=== PATIENT | female | born 1945 | race Caucasian/White ===

== ENCOUNTER 2023-12-16 17:55 | Emergency (ER) | payer MEDICARE, BC, SELFPAY ==
[2023-12-16] VITALS (7 sets, daily range): BP systolic 129–146; BP diastolic 57–64; BMI 26.9
[2023-12-16 18:04] LABS: % Basophils 0.7 % (0-2); % Eosinophils 1.8 % (0-6); % Immature Granulocytes 0.4 % (0-0.5); % Monocytes 9.1 % (1.7-9.3); Absolute Basophils 0.1 10^3/uL (0-0.2); Absolute Eosinophils 0.2 10^3/uL (0-0.7); Absolute Lymphocytes 1.3 10^3/uL (1.2-3.4); Absolute Monocytes 0.8 10^3/uL (0.1-0.6); Absolute Neutrophils 6.2 10^3/uL (1.4-6.5); Hemoglobin 11.5 g/dL (12.0-16.0); Mean Corp Hgb Conc. 32.9 g/dL (33.0-37.0); Mean Corpuscular Hgb 28.8 pg (27.0-31.0); Mean Corpuscular Volume 87.7 fL (81.0-99.0); Mean Platelet Volume 10.9 fL (7.4-10.4); Nucleated Red Blood Cells % 0 %; Platelet Count 331 10^3/uL (130-400); Red Blood Cell Count 3.99 10^6/uL (4.20-5.40); Red Cell Dist. Width 13.8 % (11.5-14.5); White Blood Cell Count 8.4 10^3/uL (4.8-10.8)
--- NOTE | 2023-12-16 18:04 | ED.GENMED ---
History of Present Illness
General
Chief Complaint: Chest Pain
Time Seen by Provider: 12/16/23 18:03
Travel History
Have you had any contact with someone who has COVID-19?: No
Do you have any symptoms of coronavirus? Fever > 100 degrees, chills, cough, shortness of breath, sore throat, loss of taste or smell, muscle aches, or headache?: No
History of Present Illness
History of Present Illness:
HPI: Patient presents with chest pain. She came in by ambulance. EMS did give nitro and aspirin. She has had a Watchman. She states that the nitroglycerin did not really help at all. Her pain is localized lateral to the left breast. She never
had any diffuse chest pain. There is no radiation. There was some pleuritic component but there is no shortness of breath.
EXAM:
GENERAL: Well appearing in no distress
HEENT: Moist oral mucosa
CARDIOVASCULAR: 4 out of 6 systolic murmur heard diffusely, normal heart rate and rhythm, moderate to severe lateral left chest wall tenderness
PULMONARY: No respiratory distress, breath sounds are clear and equal
ABDOMEN: Soft with no peritoneal signs, no tenderness
NEUROLOGIC: Excellent strength all extremities, no coordination deficits
PSYCHIATRIC: Appropriate mental status, normal insight and judgement
EXTREMITIES: Nontender, no edema, moves all extremities equally
SKIN: No rash, no lesions
ED COURSE:
6:30 PM: I initially evaluated patient
NUMBER AND COMPLEXITY OF PROBLEMS ADDRESSED AT THE ENCOUNTER
� Chronic conditions affecting care: A-fib status post Watchman, high blood pressure, has maker, has history of GI bleed
� Acute Exacerbation and/or Progression of Chronic Illness: This is an acute problem
� Differential Diagnosis includes: Chest wall pain, pneumothorax, pneumonia, GERD, ACS unlikely
AMOUNT AND/OR COMPLEXITY OF DATA TO BE REVIEWED AND ANALYZED
� I performed an independent evaluation of and my interpretation is:
EKG: V paced, rate of 66, MD [address]:
X-rays: Chest x-ray shows no acute abnormality
Laboratory Studies: White count is normal, hemoglobin is 11.5, 2 troponins have been negative and second troponin was drawn more than 3 hours after symptom onset
Other:
� Review of other/old records: Hemoglobin from 2 months ago was 11.5
� Clinical information was obtained by an independent historian: I reviewed notes from her facility
� Prescriptions/Medications Considered but not given:
� Further testing considered but not performed:
RISK OF COMPLICATIONS AND/OR MORBIDITY OR MORTALITY OF PATIENT MANAGEMENT
� Social determinants of health affecting care: Currently staying at the [facility]
� Discussion with other providers:
� Escalation of care including admission/observation vs risk of discharge considered: The patient has reproducible left-sided chest discomfort. It is clearly reproducible on examination. However given advanced age, cardiac
workup pursued. Tylenol was as she does have reproduced chest wall pain. Chest x-ray unremarkable. The patient appears comfortable at time of discharge. The patient states Tylenol did help and her symptoms have improved.
Phy Exam
Physical Exam
Physical Exam:
See HPI
Scores
Heart Score for Chest Pain Patients
STEMI patient?: Not applicable
Course
Orders/Labs/Results
Orders:
Orders
12/16/23 17:57
Electrocardiogram (*1) Urgent
Reason for Study: Chest Pain
Cardiac Monitoring- Treatment ONCE
EKG- Treatment ONCE
12/16/23 17:59
Complete Blood Count/With Diff Urgent
Prothrombin Time Urgent
12/16/23 18:38
Comprehensive Metabolic Panel Urgent
Troponin I Urgent
12/16/23 19:36
Acetaminophen [Tylenol] 1,000 mg PO NOW STA
12/16/23 20:17
CR Chest - 2 Views Urgent
Comment:
Reason For Exam: L CP
12/16/23 20:47
Troponin I Urgent
Abnormal Lab Results
12/16/23 12/16/23
17:59 18:38
RBC 3.99 L 10^6/uL
(4.20-5.40)
Hgb 11.5 L g/dL
(12.0-16.0)
Hct 35.0 L %
(37.0-47.0)
MCHC 32.9 L g/dL
(33.0-37.0)
MPV 10.9 H fL
(7.4-10.4)
Absolute Monos (auto) 0.8 H 10^3/uL
(0.1-0.6)
Lymphocytes % 15.0 L %
(20.5-51.1)
Sodium 132 L mmol/L
(135-145)
BUN 48 H mg/dl
(7-17)
Glucose 111 H mg/dl
(70-99)
Alkaline Phosphatase 178 H U/L
(38-126)
Albumin 3.4 L g/dl
(3.5-5.0)
12/16/23 17:59
12/16/23 18:38
Vital Signs
Initial and Last Documented VS:
Initial Vital Signs
Temp Pulse Resp BP Pulse Ox
98.6 F 64 24 137/64 99
12/16/23 17:57 12/16/23 17:57 12/16/23 17:57 12/16/23 17:57 12/16/23 17:57
Last Documented Vital Signs
Temp Pulse Resp BP Pulse Ox
98.6 F 61 15 129/57 96
12/16/23 17:57 12/16/23 20:15 12/16/23 20:15 12/16/23 20:00 12/16/23 20:15
*Critical Care Note
Total Time (30-74mins, 75-104mins- exclusive of procedures): Not Applicable
ED Attending Note
-
Portions of this chart may have been created with voice recognition software.� Occasional wrong word or��sound alike� substitutions may have occurred due to the inherent limitations of voice recognition software.
Discharge Plan
Departure
Patient Disposition: Home (Routine Discharge)
Date of Disposition: 12/16/23
Time of Disposition: 21:24
Patient with high blood pressure during this ER visit?: Yes
Discharge Problem:
Chest pain
Instructions: Chest Pain PCP Follow Up
Referrals:
UNKNOWN - PT NOT,INTERVIEWE [Family Provider] -
Activity Restrictions/Additional Instructions:
The chest x-ray shows no abnormality, 2 cardiac blood test called troponin showed no sign of heart attack. EKG shows that your pacemaker is working. Other basic blood work is unremarkable. Return here if worse. Take Tylenol for pain.
Interventions
Interventions:
*Risk Screen - Suicide Last Done: 12/16/23 17:57
*Neglect/Abuse Screening Last Done: 12/16/23 17:57
ED- Fall Risk Assessment Last Done: 12/16/23 18:09
*ED COVID-19 Vaccine History Last Done: 12/16/23 17:57
ED- Cardiac Assessment Last Done: 12/16/23 18:09
[2023-12-16 18:16] LABS: INR 1.12; PT 14.2 Sec (11.4-14.6)
[2023-12-16 19:05] LABS: ALT (SGPT) < 10 U/L (0-35); AST (SGOT) 24 U/L (14-36); Albumin 3.4 g/dl (3.5-5.0); Alkaline Phosphatase 178 U/L (38-126); Blood Urea Nitrogen 48 mg/dl (7-17); Calcium 8.7 mg/dl (8.4-10.2); Carbon Dioxide 24 mmol/L (22-30); Chloride 101 mmol/L (98-107); Estimated Creatinine Clearance 42 ml/min; Glucose 111 mg/dl (70-99); Potassium 4.4 mmol/L (3.5-5.1); Sodium 132 mmol/L (135-145); Total Bilirubin 0.5 mg/dl (0.2-1.3); Total Protein 6.4 g/dl (6.3-8.2); eGFR 57.31
[2023-12-16 19:17] LABS: Troponin I < 0.012 ng/ml
[2023-12-16] MEDS: TYLENOL 1000 MG PO (20:40)
[2023-12-16 21:17] LABS: Troponin I < 0.012 ng/ml
[2023-12-17] VITALS: BP 139/61
== END 2023-12-17 00:20 | disposition home or self-care (01) ==
LOC: EMR 17:55
PROVIDERS: EMERGENCY PHYSICIAN Emergency Medicine
DX: R07.89 Other chest pain (principal); I48.91 Unspecified atrial fibrillation; I51.7 Cardiomegaly
CPT/HCPCS: 99283; 71046; 80053; 84484; 85025; 85610; 93005

== ENCOUNTER → 2024-02-06 10:20 | Outpatient (REF) | payer MEDICARE, SELFPAY ==
[2024-02-06 10:56] LABS: % Basophils 0.6 % (0-2); % Eosinophils 1.7 % (0-6); % Immature Granulocytes 0.3 % (0-0.5); % Lymphocytes 12.8 % (20.5-51.1); % Monocytes 6.7 % (1.7-9.3); % Neutrophils 77.9 % (42.2-75.2); Absolute Basophils 0.1 10^3/uL (0-0.2); Absolute Eosinophils 0.2 10^3/uL (0-0.7); Absolute Lymphocytes 1.3 10^3/uL (1.2-3.4); Absolute Monocytes 0.7 10^3/uL (0.1-0.6); Absolute Neutrophils 7.7 10^3/uL (1.4-6.5); Hematocrit 31.4 % (37.0-47.0); Mean Corp Hgb Conc. 31.8 g/dL (33.0-37.0); Nucleated Red Blood Cells % 0 %; Platelet Count 249 10^3/uL (130-400); Red Blood Cell Count 3.57 10^6/uL (4.20-5.40); Red Cell Dist. Width 15.8 % (11.5-14.5); White Blood Cell Count 9.9 10^3/uL (4.8-10.8)
[2024-02-06 10:56] LABS: Urine Albumin Negative (Neg - Trace); Urine Bilirubin Negative (Negative); Urine Character Clear (Clear); Urine Color Yellow; Urine Glucose Negative (Negative); Urine Ketone Negative (Negative); Urine Leukocyte Negative (Negative); Urine Nitrite Negative (Negative); Urine Occult Blood Negative (Negative); Urine Urobilinogen Negative (Neg - 1+)
[2024-02-06 11:07] LABS: APTT 30.2 Sec (23.4-35.0); INR 1.05; PT 13.7 Sec (11.4-14.6)
[2024-02-06 11:32] LABS: Blood Urea Nitrogen 39 mg/dl (7-17); Calcium 9.3 mg/dl (8.4-10.2); Carbon Dioxide 25 mmol/L (22-30); Chloride 105 mmol/L (98-107); Glucose 86 mg/dl (70-99); Sodium 136 mmol/L (135-145); eGFR > 60.00
[2024-02-06 12:37] LABS: Glycohemoglobin (HgbA1c) 5.8 % (4.0-5.6)
== END ==
LOC: OLABPATH 10:20
PROVIDERS: ATTENDING PHYSICIAN Internal Medicine
DX: Z79.01 Long term (current) use of anticoagulants (principal); N30.00 Acute cystitis without hematuria; Z13.1 Encounter for screening for diabetes mellitus; Z01.812 Encounter for preprocedural laboratory examination; Z01.818 Encounter for other preprocedural examination; Z79.899 Other long term (current) drug therapy
CPT/HCPCS: 36415; 80048; 81003; 83036; 85025; 85610; 85730; 87077; 87086; 87186

== ENCOUNTER → 2024-02-12 11:00 | Outpatient (REF) | payer MEDICARE, SELFPAY | LOC: OLABPATH 11:00 | PROVIDERS: ATTENDING PHYSICIAN Internal Medicine | DX: N30.00 Acute cystitis without hematuria (principal); Z13.1 Encounter for screening for diabetes mellitus; Z01.812 Encounter for preprocedural laboratory examination; Z01.818 Encounter for other preprocedural examination | CPT/HCPCS: 87070 ==

== ENCOUNTER → 2024-10-14 15:15 | Outpatient (REF) | payer MEDICARE, SELFPAY ==
[2024-10-15 11:03] LABS: Urine Albumin Trace (Neg - Trace); Urine Bilirubin Negative (Negative); Urine Character Clear (Clear); Urine Color Yellow; Urine Glucose Negative (Negative); Urine Ketone Negative (Negative); Urine Leukocyte Negative (Negative); Urine Nitrite Negative (Negative); Urine Occult Blood Negative (Negative); Urine Specific Gravity 1.015 (<1.030); Urine Urobilinogen Negative (Neg - 1+)
== END ==
LOC: OLABPATH 15:15
PROVIDERS: ATTENDING PHYSICIAN Internal Medicine
DX: N39.0 Urinary tract infection, site not specified (principal)
CPT/HCPCS: 81003

== ENCOUNTER → 2024-11-17 09:59 | Outpatient (REF) | payer MEDICARE, SELFPAY ==
[2024-11-17 11:21] LABS: Glycohemoglobin (HgbA1c) 5.7 % (4.0-5.6)
== END ==
LOC: OLABPATH 09:59
PROVIDERS: ATTENDING PHYSICIAN Internal Medicine
DX: E11.65 Type 2 diabetes mellitus with hyperglycemia (principal)
CPT/HCPCS: 36415; 83036

== ENCOUNTER → 2024-12-31 11:16 | Outpatient (REF) | payer MEDICARE, SELFPAY ==
[2024-12-31 12:48] LABS: % Basophils 0.5 % (0-2); % Eosinophils 1.9 % (0-6); % Immature Granulocytes 0.8 % (0-0.5); % Lymphocytes 12.8 % (20.5-51.1); % Monocytes 8.3 % (1.7-9.3); % Neutrophils 75.7 % (42.2-75.2); Absolute Basophils 0.1 10^3/uL (0-0.2); Absolute Eosinophils 0.2 10^3/uL (0-0.7); Absolute Immature Granulocytes 0.1 10^3/uL (0-0.05); Absolute Lymphocytes 1.3 10^3/uL (1.2-3.4); Absolute Monocytes 0.9 10^3/uL (0.1-0.6); Absolute Neutrophils 7.8 10^3/uL (1.4-6.5); Hematocrit 35.8 % (37.0-47.0); Hemoglobin 11.7 g/dL (12.0-16.0); Mean Corp Hgb Conc. 32.7 g/dL (33.0-37.0); Mean Corpuscular Hgb 29.5 pg (27.0-31.0); Mean Corpuscular Volume 90.2 fL (81.0-99.0); Mean Platelet Volume 11.7 fL (7.4-10.4); Nucleated Red Blood Cells % 0 %; Platelet Count 259 10^3/uL (130-400); Red Blood Cell Count 3.97 10^6/uL (4.20-5.40); White Blood Cell Count 10.3 10^3/uL (4.8-10.8)
[2024-12-31 12:54] LABS: ALT (SGPT) 13 U/L (0-35); AST (SGOT) 23 U/L (14-36); Albumin 4.6 g/dl (3.5-5.0); Alkaline Phosphatase 117 U/L (38-126); Blood Urea Nitrogen 39 mg/dl (7-17); Calcium 9.6 mg/dl (8.4-10.2); Carbon Dioxide 23 mmol/L (22-30); Chloride 97 mmol/L (98-107); Glucose 104 mg/dl (70-99); Potassium 3.5 mmol/L (3.5-5.1); Sodium 135 mmol/L (135-145); Total Bilirubin 1.2 mg/dl (0.2-1.3); Total Protein 7.3 g/dl (6.3-8.2); eGFR 41.57
== END ==
LOC: OLABPATH 11:16
PROVIDERS: ATTENDING PHYSICIAN Internal Medicine
DX: R79.9 Abnormal finding of blood chemistry, unspecified (principal); Z13.220 Encounter for screening for lipoid disorders
CPT/HCPCS: 36415; 80053; 85025

== ENCOUNTER 2025-08-17 11:12 | Emergency (ER) | payer MEDICARE, BC, SELFPAY ==
[2025-08-17 11:15] VITALS: BP 160/62
[2025-08-17 11:16] VITALS: BP 160/62
[2025-08-17 11:37] LABS: Hematocrit 32.9 % (37.0-47.0); Hemoglobin 10.1 g/dL (12.0-16.0); Mean Corp Hgb Conc. 30.7 g/dL (33.0-37.0); Mean Corpuscular Volume 94.0 fL (81.0-99.0); Nucleated Red Blood Cells % 0 %; Platelet Count 214 10^3/uL (130-400); Red Cell Dist. Width 14.5 % (11.5-14.5)
[2025-08-17 11:55] LABS: ALT (SGPT) 14 U/L (0-35); AST (SGOT) 20 U/L (14-36); Albumin 3.8 g/dl (3.5-5.0); Alkaline Phosphatase 122 U/L (38-126); Blood Urea Nitrogen 34 mg/dl (7-17); Calcium 8.7 mg/dl (8.4-10.2); Carbon Dioxide 25 mmol/L (22-30); Chloride 106 mmol/L (98-107); Glucose 130 mg/dl (70-99); Potassium 4.1 mmol/L (3.5-5.1); Sodium 137 mmol/L (135-145); Total Protein 6.5 g/dl (6.3-8.2); eGFR 56.60
[2025-08-17 12:00] VITALS: BP 153/60
[2025-08-17 13:00] VITALS: BP 138/60
--- NOTE | 2025-08-17 13:37 | ED.GENMED ---
Addendum entered and electronically signed by Joaquin Jimenez PA-C 08/20/25 06:19:
On Bactrim, appropriate per C&S
Original Note:
History of Present Illness
<Abhi Porter, DO - Last Filed: 08/17/25 15:36>
General
Chief Complaint: Change in Mental Status
Time Seen by Provider: 08/17/25 11:54
History of Present Illness
History of Present Illness:
See MDM
Phy Exam
<Abhi Porter, DO - Last Filed: 08/17/25 15:36>
Physical Exam
Physical Exam:
See MDM
Course
<Abhi Porter, DO - Last Filed: 08/17/25 15:36>
Orders/Labs/Results
Orders:
Orders
08/17/25 11:24
Complete Blood Count/With Diff Urgent
Comprehensive Metabolic Panel Urgent
08/17/25 12:25
Urine Culture Urgent
JEAN CLAUDE Source: Urine
Specimen Description:
Obtained by: [facility]
Date Specimen was Collected: 08/17/25
Time Specimen was Collected: 12:23
08/17/25 13:36
Ketorolac [Toradol] 15 mg IV NOW STA
Sulfamethox./Trimethoprim Ds [Bactrim Ds 800 mg/160 mg] 1 tablet PO NOW STA
Abnormal Lab Results
08/17/25
11:24
RBC 3.50 L 10^6/uL
(4.20-5.40)
Hgb 10.1 L g/dL
(12.0-16.0)
Hct 32.9 L %
(37.0-47.0)
MCHC 30.7 L g/dL
(33.0-37.0)
MPV 10.5 H fL
(7.4-10.4)
Absolute Neuts (auto) 8.5 H 10^3/uL
(1.4-6.5)
Absolute Lymphs (auto) 0.6 L 10^3/uL
(1.2-3.4)
Absolute Monos (auto) 0.7 H 10^3/uL
(0.1-0.6)
Neutrophils % 83.9 H %
(42.2-75.2)
Lymphocytes % 6.0 L %
(20.5-51.1)
BUN 34 H mg/dl
(7-17)
Glucose 130 H mg/dl
(70-99)
08/17/25 11:24
08/17/25 11:24
Vital Signs
Initial and Last Documented VS:
Initial Vital Signs
BP
160/62
08/17/25 11:15
Last Documented Vital Signs
Temp Pulse Resp BP Pulse Ox
98.2 F 64 13 144/61 96
08/17/25 11:16 08/17/25 15:30 08/17/25 15:30 08/17/25 15:00 08/17/25 15:30
<Jonathan Aldana, DO - Last Filed: 08/17/25 16:50>
Orders/Labs/Results
Orders:
Orders
08/17/25 11:24
Complete Blood Count/With Diff Urgent
Comprehensive Metabolic Panel Urgent
08/17/25 12:25
Urine Culture Urgent
JEAN CLAUDE Source: Urine
Specimen Description:
Obtained by: [facility]
Date Specimen was Collected: 08/17/25
Time Specimen was Collected: 12:23
08/17/25 13:36
Ketorolac [Toradol] 15 mg IV NOW STA
Sulfamethox./Trimethoprim Ds [Bactrim Ds 800 mg/160 mg] 1 tablet PO NOW STA
Abnormal Lab Results
08/17/25
11:24
RBC 3.50 L 10^6/uL
(4.20-5.40)
Hgb 10.1 L g/dL
(12.0-16.0)
Hct 32.9 L %
(37.0-47.0)
MCHC 30.7 L g/dL
(33.0-37.0)
MPV 10.5 H fL
(7.4-10.4)
Absolute Neuts (auto) 8.5 H 10^3/uL
(1.4-6.5)
Absolute Lymphs (auto) 0.6 L 10^3/uL
(1.2-3.4)
Absolute Monos (auto) 0.7 H 10^3/uL
(0.1-0.6)
Neutrophils % 83.9 H %
(42.2-75.2)
Lymphocytes % 6.0 L %
(20.5-51.1)
BUN 34 H mg/dl
(7-17)
Glucose 130 H mg/dl
(70-99)
08/17/25 11:24
08/17/25 11:24
Vital Signs
Initial and Last Documented VS:
Initial Vital Signs
BP
160/62
08/17/25 11:15
Last Documented Vital Signs
Temp Pulse Resp BP Pulse Ox
98.2 F 64 13 144/61 96
08/17/25 11:16 08/17/25 15:30 08/17/25 15:30 08/17/25 15:00 08/17/25 15:30
<Abhi Porter, DO - Last Filed: 08/17/25 15:36>
MDM/Problems Addressed
Differential Diagnosis Includes:
Note:
CHIEF COMPLAINT(S)
Back pain and urinary tract infection.
HISTORY OF PRESENT ILLNESS
The patient is an 80-year-old female who reports experiencing back pain. The pain is described as bilateral, affecting both sides of her back. She also has a recent diagnosis of a urinary tract infection, identified on a Sunday, but reports not
having been started on antibiotics. The patient denies having fevers, stating 'everything is normal' in terms of her vital signs or temperature. She reports feeling 'awful' but mentions no exacerbation of her symptoms. The pain is being evaluated
for a possible kidney infection.
PAST MEDICAL AND SURGICAL HISTORY
The patient did not clearly state past medical or surgical history during this encounter. Known allergy to penicillin reported.
PHYSICAL EXAM
General: Alert, no acute distress.
Skin: Warm, dry. No rash noted to back
Head: Normocephalic, atraumatic
Neck: Appears supple, trachea midline.
Eyes, Ears, Nose, Mouth, and Throat: Moist mucous membranes
Cardiovascular: No signs of cyanosis. Regular rate and rhythm
Respiratory: Respirations are non-labored. Lungs clear
Abdomen: Non-distended. Soft and nontender
Musculoskeletal: No deformities
Neurological: No focal neurological deficit observed.
Psychiatric: Cooperative, appropriate mood and affect.
PLAN
Initiate basic blood work to evaluate for kidney infection or any other underlying issues. Consider administration of IV Toradol for immediate pain relief. Plan to evaluate urine for signs of infection and prepare for potential IV antibiotic
administration.
DIFFERENTIAL DIAGNOSIS
The Differential Diagnosis includes, in no particular order and is not limited to:
- Urinary tract infection
- Pyelonephritis (kidney infection)
- Musculoskeletal back pain
- Nephrolithiasis (kidney stones)
- Lumbar strain
- Osteoarthritis
- Disc herniation
- Spinal stenosis
- Infection (other source)
- Medication side effects
SUMMARY OF ENCOUNTER
The patient was seen for back pain and a recent urinary tract infection diagnosis without previous antibiotic treatment. The plan includes basic blood work, potential urine evaluation, and pain management with IV Toradol. There is consideration for
starting antibiotics depending on further evaluations.
DISPOSITION
Prepare for discharge after evaluation and treatment.
MEDICATION RECONCILIATION
Toradol (ketorolac) administered through IV for pain relief.
MEDICAL DECISION MAKING
- Number and Complexity of Problems Addressed: Chronic conditions affecting care include urinary tract infection and back pain. The Differential Diagnosis list is specified above.
- Data:
Category 1: Lab tests, including basic blood work, ordered for further evaluation. Consideration of urinalysis.
Category 2: Patients orientation noted at arrival.
- Risk: Prescription medication was prescribed (Toradol for pain relief).
DIAGNOSIS
- Back pain (ICD-10: M54.9)
- Urinary tract infection (ICD-10: N39.0)
Disposition:
SUMMARY OF ENCOUNTER
The patient, an 80-year-old female, was seen in the emergency department for back pain and a recent diagnosis of urinary tract infection (UTI). Upon examination, she reported bilateral back pain and had been feeling 'awful' since the UTI diagnosis,
which was made on a prior Sunday. Laboratory tests, including blood work and a urinalysis, were conducted to evaluate for a possible kidney infection or other underlying issues. No significant abnormalities were noted in the urinalysis except for
findings consistent with the UTI. Due to the patients penicillin allergy, considerations for alternative antibiotic therapy were made. She was administered IV ketorolac (Toradol) for immediate pain relief and reported feeling better following
treatment. Given her improved condition and comfort in returning to her care facility, she was prepared for discharge with plans for further urine culture analysis.
DISPOSITION
Discharge
ASSESSMENT
The patient presented with back pain likely associated with her recently diagnosed urinary tract infection.
EMERGENCY TREATMENTS ADMINISTERED
Ketorolac administered intravenously for pain relief.
PLAN
The plan includes sending the urine sample for culture despite initial urinalysis findings. No antibiotics will be administered due to her penicillin allergy, and further management will consider this in determining appropriate antibiotic therapy if
needed. The patient is advised to maintain close follow-up with her primary care provider or facility healthcare team.
INDEPENDENT REVIEW OF LABS AND INTERPRETATION OF TESTS
My independent review indicates no significant abnormalities in the blood work, corroborated by the findings on initial urinalysis.
FOLLOW-UP INSTRUCTIONS
The patient is instructed to follow up with her doctor or healthcare team at her care facility promptly.
MEDICATION RECONCILIATION
Ketorolac (administered IV for immediate pain relief).
MEDICAL DECISION MAKING
-Number and Complexity of Problems Addressed: Chronic conditions affecting care include urinary tract infection and back pain. Differential diagnosis included urinary tract infection, pyelonephritis, musculoskeletal back pain, nephrolithiasis,
lumbar strain, osteoarthritis, disc herniation, spinal stenosis, infection (other source), and medication side effects.
-Data:
Category 1
Lab tests including blood work and urinalysis were ordered and reviewed.
-Risk:
Prescription medication management included IV ketorolac for pain relief. Potential antibiotics were considered in light of the patients penicillin allergy, but none were administered at this time.
DIAGNOSIS
- Back pain (ICD-10: M54.9)
- Urinary tract infection (ICD-10: N39.0)
<Abhi Porter, DO - Last Filed: 08/17/25 15:36>
*Pulse Oximetry
SaO2: 99
Oxygen Mode of Delivery: Room air
Patient hypoxic: no
*Critical Care Note
Total Time (30-74mins, 75-104mins- exclusive of procedures): Not Applicable
<Jonathan Aldana, DO - Last Filed: 08/17/25 16:50>
Update Note
Update Note:
4:45 PM 3 PM ER attending call from shelter patient and staff upset because she was not given IV antibiotics, recent urine culture noted pansensitive E. coli they claimed that she is allergic to sulfa, I did call in a prescription for Levaquin
250 #[phone] to [facility] [phone]
ED Attending Note
<Abhi Porter, DO - Last Filed: 08/17/25 15:36>
-
Portions of this chart may have been created with voice recognition software.� Occasional wrong word or��sound alike� substitutions may have occurred due to the inherent limitations of voice recognition software.
Discharge Plan
Departure
Patient Disposition: Home (Routine Discharge)
Date of Disposition: 08/17/25
Time of Disposition: 13:37
Patient with high blood pressure during this ER visit?: Yes
Discharge Problem:
Acute UTI, Weakness
Instructions: BLOOD PRESSURE
Prescriptions:
New
sulfamethoxazole-trimethoprim [Bactrim DS] 800-160 mg tablet
1 tab PO BID 5 Days Qty: 10 0RF
Referrals:
Hector Bear, [Family Provider]
Activity Restrictions/Additional Instructions:
Please return for any worsening symptoms.
You may return at any time if you have further concerns.
Please follow up with your doctor at the first available appointment, preferably this week.
Thank you for choosing [facility].
Interventions
Interventions:
*Risk Screen - Suicide Last Done: 08/17/25 11:16
*General Assessment Last Done: 08/17/25 11:16
*Neglect/Abuse Screening Last Done: 08/17/25 11:16
*ED COVID-19 Vaccine History Last Done: 08/17/25 14:33
*ED Influenza Vaccine History Last Done: 08/17/25 14:33
*Nursing Disposition Last Done: 08/17/25 16:18
ED- Neurological Assessment Last Done: 08/17/25 13:30
ED Swallowing Screen Last Done: 08/17/25 13:30
Discharge Date and Time
Discharge Date/Time: 08/17/25 16:19
Print Language: ICELANDIC
[2025-08-17 14:00] VITALS: BP 148/61
[2025-08-17] MEDS: TORADOL 15 MG IV (14:07)
[2025-08-17] MEDS: BACTRIM DS 800 MG/160 MG 1 TABLET PO (14:07)
[2025-08-17 15:00] VITALS: BP 144/61
== END 2025-08-17 16:19 | disposition home or self-care (01) ==
LOC: EMR 11:12
PROVIDERS: EMERGENCY PHYSICIAN Student in an Organized Health Care Education/Training Program; FAMILY PHYSICIAN Internal Medicine
DX: N39.0 Urinary tract infection, site not specified (principal); R53.1 Weakness; Z88.0 Allergy status to penicillin; Z88.2 Allergy status to sulfonamides
CPT/HCPCS: 96374; 99284; 80053; 85025; 87077; 87086; 87186